=== PATIENT | female | born 1970 | race Caucasian/White ===

== ENCOUNTER → 2016-11-15 | Outpatient (CLI) | payer MEDICAID ==
--- NOTE | 2016-11-17 08:35 | MM ---
Reason for exam: screening (asymptomatic). Last mammogram was performed 6 years and 3 months ago. History: Benign left mammotome panel of the left breast, April 18, 2009. Took hormonal contraceptives for 6 years beginning at age 15. Physical Findings: A clinical breast exam by your physician is recommended on an annual basis and results should be correlated with mammographic findings. MG Screening Mammo w CAD Bilateral CC and MLO view(s) were taken. Prior study comparison: August 10, 2010, bilateral diagnostic digital mammog. The breast tissue is heterogeneously dense. This may lower the sensitivity of mammography. Previous mammotome biopsy in the left breast. No significant changes when compared with prior studies. ASSESSMENT: Negative, BI-RAD 1 RECOMMENDATION: Routine screening mammogram of both breasts in 1 year.
== END | disposition home or self-care (01) ==
LOC: RADMAMWWP 09:33
PROVIDERS: ATTEND Internal Medicine
DX: Z12.31 Encounter for screening mammogram for malignant neoplasm of breast (principal)

== ENCOUNTER → 2018-05-24 | Outpatient (CLI) | payer MEDICAID ==
--- NOTE | 2018-05-24 11:56 | XR ---
EXAM TYPE: LUMBAR SPINE X RAY SERIES COMPARISON: NONE HISTORY: Lower back pain TECHNIQUE: 4 views are submitted. FINDINGS: Alignment is anatomic. The pedicles are intact. The transverse processes are intact. Postsurgical change L3-L4 with chronic appearing wedge deformity and retrolisthesis of L4 relative to L5. Facet ar thropathy at L5-S1 with a grade 1 anterolisthesis. Degenerative disc disease L3-4, L4-5, and L5-S1. IMPRESSION: 1. Postsurgical changes with chronic appearing wedge fracture L4. Given the history of previous fract ure if there is concern for worsening compression MRI could BE obtained given the lack of previous ex am.
== END | disposition home or self-care (01) ==
LOC: RADXRYALE 10:30
PROVIDERS: ATTEND Internal Medicine
DX: M84.48XA Pathological fracture, other site, initial encounter for fracture (principal); Z98.890 Other specified postprocedural states
CPT/HCPCS: 72110

== ENCOUNTER → 2019-03-09 | Outpatient (CLI) | payer MEDICAID ==
--- NOTE | 2019-03-13 13:48 | MM ---
Reason for exam: screening (asymptomatic). Last mammogram was performed 2 years and 4 months ago. History: Benign left mammotome panel of the left breast, April 18, 2009. Took hormonal contraceptives for 6 years beginning at age 15. Physical Findings: A clinical breast exam by your physician is recommended on an annual basis and results should be correlated with mammographic findings. MG 3D Screening Mammo W/Cad Bilateral CC and MLO view(s) were taken. Prior study comparison: November 15, 2016, bilateral MG screening mammo w CAD. August 10, 2010, bilateral diagnostic digital mammog. The breast tissue is extremely dense which could obscure a lesion on mammography. Previous mammotome biopsy in the left breast. No significant changes when compared with prior studies. ASSESSMENT: Benign, BI-RAD 2 RECOMMENDATION: Routine screening mammogram of both breasts in 1 year.
== END | disposition home or self-care (01) ==
LOC: RADMAMWWP 07:51
PROVIDERS: ATTEND Obstetrics & Gynecology
DX: Z12.31 Encounter for screening mammogram for malignant neoplasm of breast (principal)
CPT/HCPCS: 77063; 77067

== ENCOUNTER 2020-05-23 07:44 | Day surgery (SDC) | payer MEDICAID ==
[2020-05-20 14:46] VITALS: BMI 26.9
[~2020-05-23 07:44] MED LIST: LACTATED RINGERS 1,000 ML IV SCH; LIDOCAINE 1% (10MG/ML) FOR IV START INTRADERMA PRN
[2020-05-23] MEDS ORDERED: LIDOCAINE 1% (10MG/ML) FOR IV START INTRADERMA ONE (08:20)
[2020-05-23 08:24] VITALS: RESP 16; TEMP 97.5
[2020-05-23] MEDS ORDERED: PROPOFOL 10 MG/ML 20 ML VIAL IV ONE (08:52)
[2020-05-23] MEDS ORDERED: LIDOCAINE 1% INJ 10MG/ML (20 ML MDV) ONE (08:52)
--- NOTE | 2020-05-23 09:25 | P.OP ---
Date of Procedure: 05/23/20 Preoperative Diagnosis: Screening for colon cancer Postoperative Diagnosis: Screening for colon cancer Normal colon Procedure(s) Performed: Colonoscopy Surgeon: Vimal Patel Pathology: none sent Condition: stable Disposition: same day Indications for Procedure: This is a 49-year-old female that presents for a screening colonoscopy. She has never had a colonoscopy previously. She denies any family history of colon cancer. Denies blood in her stool. Risks, benefits and alternatives were provided to the patient and the patient did provide consent prior to attending the endoscopy suite. Operative Findings: Overall normal colon Description of Procedure: The patient was brought to the endoscopy suite and placed in left lateral decubitus position. Adequate sedation was achieved using conscious sedation. A digital rectal exam was performed and mild internal hemorrhage or palpated. An endoscope was then placed in the rectum and advanced to the cecum as identified by landmarks including the appendiceal orifice and the ileocecal valve. The prep was good. The colon scope was then slowly withdrawn, examining for any mucosal around these. The cecum, ascending, transverse, descending and sigmoid colon were visualized adequately. There were no obvious large neoplastic lesions. There were no obvious polyps noted throughout the colon. There were no diverticuli noted. Retroflexion was performed in the rectum and mild internal hemorrhage or visible. Excess air was removed, the colonoscope withdrawn and the procedure terminated. The patient was then transferred to the recovery unit in stable condition. Repeat colon ostomy should be performed in 8-10 years
[2020-05-23 09:36] VITALS: BP 125/84; PULSE 72
--- NOTE | 2020-05-27 12:14 | CDI ---
Date: 05.27.2020 CDS/Assembly Lead Person Name: Alysha Almonte Phone: If any questions, call Radha Mcnally Furnace Repair Mechanic at [phone] Patient Name: Sharon Singleton Admit Date: 05.23.20 Discharge Date: 05.23.20 ATTENTION: The [facility] Coding Staff appreciate your assistance in clarifying documentation. Please respond to the clarification below the line at the bottom and electronically sign. The [facility] Coding staff will review the response and follow-up if needed. Please note: Queries are made part of the Legal Health Record. If you have any questions, please contact the Furnace Repair Mechanic. Dear Dr. Patel In your colonoscopy report you have documented rectal exam was performed and mild internal hemorrhage or palpated and also documented retroflexion was performed in the rectum and mild internal hemorrhage. Was this a typographical error. Please specify. Thank you for your kind consideration. Addendum was created on the colonoscopy report. Mild internal hemorrhage should read mild internal hemorrhoids. MTDD
== END 2020-05-23 09:51 | disposition home or self-care (01) ==
LOC: ORWHC2ENDO 07:44
PROVIDERS: ATTEND Surgery
DX: Z12.11 Encounter for screening for malignant neoplasm of colon (principal); K64.8 Other hemorrhoids; F90.9 Attention-deficit hyperactivity disorder, unspecified type; Z98.890 Other specified postprocedural states; Z79.82 Long term (current) use of aspirin; Z79.899 Other long term (current) drug therapy
CPT/HCPCS: 81025; J2001; J2704; G0121

== ENCOUNTER → 2023-02-21 | Outpatient (CLI) | payer BC ==
--- NOTE | 2023-02-22 09:15 | MM ---
Reason for Exam: Screening (asymptomatic). Last mammogram was performed 4 year(s) and 0 month(s) ago. Patient History: Menarche at age 14. First Full-Term at age 25. Patient has history of breast feeding. Hormonal Contraceptives, starting at age 15 for 6 years. 04/18/2009, Benign Core Biopsy on the left side. Risk Values: Brii 5 year model risk: 1.3%. NCI Lifetime model risk: 10.1%. Prior Study Comparison: 04/09/2009 Bilateral Diagnostic Mammogram, [facility]. 08/10/2010 Bilateral Diagnostic Mammogram, [facility]. 11/15/2016 Bilateral Screening Mammogram, [facility]. 03/09/2019 Bilateral Screening Mammogram, [facility]. Tissue Density: The breast tissue is heterogeneously dense. This may lower the sensitivity of mammography. Findings: Analyzed By CAD. Right breast anterior CC view more prominent cyst which does not have imaging in our system. Measures approximately 2.6 x 1.6 cm 4.0 cm from the nipple and CC view. Left breast biopsy clip. Left breast: There is no suspicious group of microcalcifications or new suspicious mass in either breast. Overall Assessment: Incomplete: need additional imaging evaluation, BI-RAD 0 Management: Diagnostic Breast Ultrasound of the right breast. No prior ultrasound imaging in the system, complete evaluation of right breast cyst recommended.. Patient should continue monthly self-breast exams. A clinical breast exam by your physician is recommended on an annual basis. This exam should not preclude additional follow-up of suspicious palpable abnormalities. Note on Brii scores and lifetime risk: 1. A Brii score greater than 3% is considered moderate risk. If this is the case, consider specialist referral to assess eligibility for a risk reducing agent. 2. If overall lifetime risk for the development of breast cancer is 20% or higher, the patient may qualify for future screening with alternating mammogram and breast MRI. Electronically signed and approved by: Wilfrid Ponce DO
== END | disposition home or self-care (01) ==
LOC: RADMAMWWP 07:08
PROVIDERS: ATTEND Obstetrics & Gynecology
DX: Z12.31 Encounter for screening mammogram for malignant neoplasm of breast (principal)
CPT/HCPCS: 77067

== ENCOUNTER → 2025-02-12 | Outpatient (CLI) | payer BC | LOC: CPPFTMAIN 07:56 | PROVIDERS: ATTEND Family Medicine | DX: T78.40XA Allergy, unspecified, initial encounter (principal); R06.02 Shortness of breath | CPT/HCPCS: 94060; 94726; 94729 ==